=== PATIENT | female | born 1985 | race African-American/Black ===

== ENCOUNTER 2017-11-28 14:29 | Emergency (ER) | payer SELFPAY ==
[2017-11-28 14:35] VITALS: BP 132/90
--- NOTE | 2017-11-28 15:01 | ER Document Report ---
ED Medical Screen (RME) - General Chief Complaint: Abdominal Pain Stated Complaint: BODY ACHES Time Seen by Provider: 11/28/17 14:54 Notes: 32 years old female, 16 weeks, while working, developed sharp cramp over the lower abdomen bilaterally. It was coming and going therefore concerned and came to the ED. No vaginal bleeding or spotting today. Denied any dysuria frequency urgency. Just prior to entering the ED urinated and felt better. For a while. Then again the pain started coming on. Examination is benign TRAVEL OUTSIDE OF THE [place] IN LAST 30 DAYS: No - Related Data Allergies/Adverse Reactions: No Known Allergies Allergy (Verified 11/28/17 14:30) Physical Exam - Vital signs Vitals: Temp Pulse Resp BP Pulse Ox 98.6 F 64 15 132/90 H 100 11/28/17 14:33 11/28/17 14:33 11/28/17 14:33 11/28/17 14:33 11/28/17 14:33 Course - Vital Signs Vital signs: Temp Pulse Resp BP Pulse Ox 98.6 F 64 15 132/90 H 100 11/28/17 14:33 11/28/17 14:33 11/28/17 14:33 11/28/17 14:33 11/28/17 14:33
[2017-11-28 15:41] LABS: APPEARANCE,URINE CLOUDY; BILIRUBIN,URINE NEGATIVE (NEGATIVE); COLOR,URINE YELLOW; GLUCOSE, URINE NEGATIVE (NEGATIVE); KETONES,URINE NEGATIVE (NEGATIVE); LEUKOCYTE ESTERASE,URINE TRACE (NEGATIVE); NITRITE,URINE NEGATIVE (NEGATIVE); PROTEIN,URINE NEGATIVE (NEGATIVE); URINE SPECIFIC GRAVITY 1.023
[2017-11-28] MEDS ORDERED: ACETAMINOPHEN 325 MG TABLET PO ONE (16:14)
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
== END 2017-11-28 18:03 | disposition left against medical advice (07) ==
LOC: ER 14:29
DX: O26.892 Other specified pregnancy related conditions, second trimester (principal); R10.30 Lower abdominal pain, unspecified; R10.2 Pelvic and perineal pain; M54.5 Low back pain; Z3A.16 16 weeks gestation of pregnancy
CPT/HCPCS: 81001; 87086; 99281

== ENCOUNTER 2017-12-03 18:59 | Emergency (ER) | payer SELFPAY ==
--- NOTE | 2017-12-03 19:28 | ER Document Report ---
ED Medical Screen (RME) - General Chief Complaint: Vaginal Bleeding Stated Complaint: VAGINAL BLEEDING Time Seen by Provider: 12/03/17 19:20 Notes: Patient is a 32-year-old female that is 3 months gravid, that presents to the emergency department for chief complaint of vaginal bleeding and discharge, and abdominal cramping. Patient has been having these symptoms for approximately 5-7 days, she was seen a few days ago, states they try to get blood work overnight able she did not have an ultrasound at that time she is concerned and came back to the emergency department to be reevaluated.. ROS: Unless otherwise stated in this report the patient's positive and negative responses for review of systems for constitutional, eyes, ENT, cardiovascular, respiratory, gastrointestinal, neurological, genitourinary, musculoskeletal, and integumentary systems and related systems to the presenting problem are either as stated in the HPI or were not pertinent or were negative for the symptoms and/or complaints related to the presenting medical problem. PHYSICAL EXAMINATION: Vital signs reviewed. GENERAL: Well-appearing, well-nourished and in no acute distress. HEAD: Atraumatic, normocephalic. EYES: Pupils equal round extraocular movements intact, conjunctiva are normal. ENT: Nares patent NECK: Normal range of motion CV: Heart regular rate and rhythm LUNGS: No respiratory distress Musculoskeletal: Normal range of motion NEUROLOGICAL: Normal speech PSYCH: Normal mood, normal affect. MDM: Patient seen and examined for rapid initial assessment. Vital signs reviewed. A comprehensive ED assessment and evaluation of the patient, analysis of test results and completion of the medical decision making process will be conducted by additional ED providers. *Note is created using voice recognition software and may contain spelling, syntax or grammatical errors. TRAVEL OUTSIDE OF THE [place] IN LAST 30 DAYS: No - Related Data Allergies/Adverse Reactions: No Known Allergies Allergy (Verified 12/03/17 19:00) Past Medical History - Social History Chew tobacco use (# tins/day): No Frequency of alcohol use: None Drug Abuse: None Renal/ Medical History: Denies: Hx Peritoneal Dialysis Physical Exam - Vital signs Vitals: Temp Pulse Resp BP Pulse Ox 98.0 F 72 14 139/95 H 95 12/03/17 19:17 12/03/17 19:17 12/03/17 19:17 12/03/17 19:17 12/03/17 19:17 Course - Vital Signs Vital signs: Temp Pulse Resp BP Pulse Ox 98.0 F 72 14 139/95 H 95 12/03/17 19:17 12/03/17 19:17 12/03/17 19:17 12/03/17 19:17 12/03/17 19:17
--- NOTE | 2017-12-03 20:40 | RADIOLOGY REPORT (SQ) ---
EXAM DESCRIPTION: U/S OB 14+ TRNABD 1GES W/O DOP; U/S NON-OB PELVIS TV W/O DOP COMPLETED DATE/TIME: 12/03/2017 8:26 pm REASON FOR STUDY: vaginal bleeding, discharge 12-14 wks gravid; vaginal bleeding discharge, possible 3 months preg COMPARISON: None. TECHNIQUE: Static and Dynamic grayscale imaging performed of gravid uterus using transabdominal appr oach. Additional selected color Doppler and spectral images recorded. All stored on PACS. LIMITATIONS: Body habitus, bowel gas. FINDINGS: No intrauterine gestational sac is present. Uterus is normal and measures 8.1 x 4 x 5 cm. Endometrium measures 5 mm. There is no gestational sa c. ADNEXA: Ovaries are not seen. CERVICAL LENGTH: Not measured. OTHER: Trace amount of free fluid. IMPRESSION: No intrauterine gestational sac is seen at this time. Follow-up as clinically indicated . TECHNICAL DOCUMENTATION: JOB ID: [id number] [employer]- All Rights Reserved Reading location - IP/workstation name: [email or web address]
--- NOTE | 2017-12-03 20:40 | RADIOLOGY REPORT (SQ) ---
EXAM DESCRIPTION: U/S OB 14+ TRNABD 1GES W/O DOP; U/S NON-OB PELVIS TV W/O DOP COMPLETED DATE/TIME: 12/03/2017 8:26 pm REASON FOR STUDY: vaginal bleeding, discharge 12-14 wks gravid; vaginal bleeding discharge, possible 3 months preg COMPARISON: None. TECHNIQUE: Static and Dynamic grayscale imaging performed of gravid uterus using transabdominal appr oach. Additional selected color Doppler and spectral images recorded. All stored on PACS. LIMITATIONS: Body habitus, bowel gas. FINDINGS: No intrauterine gestational sac is present. Uterus is normal and measures 8.1 x 4 x 5 cm. Endometrium measures 5 mm. There is no gestational sa c. ADNEXA: Ovaries are not seen. CERVICAL LENGTH: Not measured. OTHER: Trace amount of free fluid. IMPRESSION: No intrauterine gestational sac is seen at this time. Follow-up as clinically indicated . TECHNICAL DOCUMENTATION: JOB ID: [id number] [employer]- All Rights Reserved Reading location - IP/workstation name: [email or web address]
[2017-12-03 20:59] LABS: APPEARANCE,URINE SLIGHTLY-CLOUDY; BILIRUBIN,URINE NEGATIVE (NEGATIVE); COLOR,URINE YELLOW; GLUCOSE, URINE NEGATIVE (NEGATIVE); KETONES,URINE TRACE mg/dL (NEGATIVE); LEUKOCYTE ESTERASE,URINE NEGATIVE (NEGATIVE); NITRITE,URINE NEGATIVE (NEGATIVE); PROTEIN,URINE NEGATIVE (NEGATIVE); URINE SPECIFIC GRAVITY 1.028
--- NOTE | 2017-12-03 22:48 | ER Document Report ---
ED General - General Chief Complaint: Vaginal Bleeding Stated Complaint: VAGINAL BLEEDING Time Seen by Provider: 12/03/17 19:20 TRAVEL OUTSIDE OF THE [place] IN LAST 30 DAYS: No - HPI Patient complains to provider of: and bleeding Onset: Other - 32-year-old presents for evaluation of vaginal bleeding in the setting of believing that she is 3 months approximately. Notes that she had had a positive home test when she felt nauseous sometime early in October though she is not exactly sure in the intervening time she had had one episode which felt somewhat like a period. She presented here for evaluation because today she began to have some spotting of blood which was brown in color. She denies any pain, no nausea, no chest pain shortness of breath diarrhea dysuria trauma to the pelvis or bleeding issues. She is otherwise healthy and takes no medicines. - Related Data Allergies/Adverse Reactions: No Known Allergies Allergy (Verified 12/03/17 19:00) Past Medical History - General Information source: Patient - Social History Smoking Status: Former Smoker Chew tobacco use (# tins/day): No Frequency of alcohol use: None Drug Abuse: None Family History: Reviewed & Not Pertinent Patient has suicidal ideation: No Patient has homicidal ideation: No Renal/ Medical History: Denies: Hx Peritoneal Dialysis Review of Systems - Review of Systems -: Yes All other systems reviewed and negative Physical Exam - Vital signs Vitals: Temp Pulse Resp BP Pulse Ox 98.0 F 72 14 139/95 H 95 12/03/17 19:17 12/03/17 19:17 12/03/17 19:17 12/03/17 19:17 12/03/17 19:17 - General General appearance: Appears well In distress: None - HEENT Head: Normocephalic Eyes: Normal Conjunctiva: Normal Cornea: Normal Extraocular movements intact: Yes Eyelashes: Normal Pupils: PERRL - Respiratory Respiratory status: No respiratory distress Chest status: Nontender Breath sounds: Normal Chest palpation: Normal - Cardiovascular Rhythm: Regular Heart sounds: Normal auscultation Murmur: No - Abdominal Inspection: Normal Distension: No distension Tenderness: Nontender - Back Back: Normal - Extremities General upper extremity: Normal inspection, Nontender, Normal strength, Normal temperature General lower extremity: Normal inspection, Nontender, Normal strength, Normal temperature - Neurological Neuro grossly intact: Yes Cognition: Normal Orientation: AAOx4 C[place] Coma Scale Eye Opening: Spontaneous [place] Coma Scale Verbal: Oriented Srinivasan Coma Scale Motor: Obeys Commands C[place] Coma Scale Total: 15 Speech: Normal Motor strength normal: LUE, RUE, LLE, RLE - Psychological Associated symptoms: Normal affect Course - Re-evaluation Re-evalutation: 12/04/17 00:26 32-year-old female presents for evaluation of vaginal bleeding in the setting of a previously positive test. Through triage she had an ultrasound ordered as well as blood work. She went through ultrasound prior to obtaining other labs, ultrasound does not demonstrate any obvious intrauterine or extrauterine . No other obvious abnormalities. Patient has an hCG level of less than 2 and a negative test by urine, her urine is otherwise unremarkable and her labs are assuring. Spoke to the patient who was apprised of these results however somewhat relieved. She denies any complaints at this time says that she believes she had just condenser so she is now. Current plan will be for discharge with return precautions and encouraged follow -up with her primary physician in the coming weeks. - Vital Signs Vital signs: Temp Pulse Resp BP Pulse Ox 98.0 F 72 14 139/95 H 95 12/03/17 19:17 12/03/17 19:17 12/03/17 19:17 12/03/17 19:17 12/03/17 19:17 - Laboratory Laboratory results interpreted by me: 12/03/17 19:40 Urine Ketones TRACE H Urine Blood SMALL H Urine Urobilinogen 4.0 H Discharge - Discharge Clinical Impression: Bleeding Condition: Good Disposition: HOME, SELF-CARE Instructions: Vaginal Bleeding ([facility]) Additional Instructions: He was seen today in the emergency department for the possibility of being , it does not appear that you are today. Continue to monitor yourself for any worsening of your symptoms. Schedule appointment with the primary physician this week
[2017-12-03 23:18] VITALS: BP 157/96
== END 2017-12-03 23:13 | disposition home or self-care (01) ==
LOC: ER 18:59
DX: N93.9 Abnormal uterine and vaginal bleeding, unspecified (principal); Z87.891 Personal history of nicotine dependence
CPT/HCPCS: 36415; 76805; 76830; 81001; 84702; 99284